=== PATIENT | female | born 1995 | race African-American/Black ===

== ENCOUNTER 2022-09-30 11:14 | Emergency (ER) | payer OTHER, SELFPAY ==
[2022-09-30 11:25] VITALS: BP 137/80; PULSE 88; RESP 16; TEMP 36.7; O2SAT 100
--- NOTE | 2022-09-30 11:27 | ED.BACK ---
HPI - Back Pain/Injury General Chief Complaint: Back Pain/Injury Stated Complaint: lower back pain Time Seen by Provider: 09/30/22 11:44 Source: patient and RN notes reviewed Mode of arrival: ambulatory Limitations: no limitations History of Present Illness HPI Narrative: 27-year-old female presents with concern for left low back pain that radiates occasionally towards her left hip and down her left thigh. She reports that symptoms started about a month ago, she does a job with heavy labor. She reports when symptoms 1st started she had pain on both sides low back and has been using an [id number] cream that has helped but she still continues to have left low back pain. She denies loss of bowel or bladder function, perianal anesthesia, weakness in any extremity. She denies dysuria, frequency, urgency. She denies fever, chills, sweats. MD elicited complaint: back pain Related Data Allergies Allergy/AdvReac Type Severity Reaction Status Date / Time No Known Allergies Allergy Unverified 09/30/22 11:23 Review of Systems Review of Systems: CONSTITUTIONAL: Denies malaise, chills, sweats, or fever. CARDIOVASCULAR: Denies chest pain, palpitations, or edema. RESPIRATORY: Denies cough or dyspnea. GASTROINTESTINAL: Denies abdominal pain, nausea, vomiting, diarrhea, loss of bowel function GENITOURINARY: Denies dysuria, hematuria, frequency, loss of bladder function. SKIN: Denies rash or itching. MUSCULOSKELETAL: Reports left low back pain NEUROLOGIC: Denies numbness, weakness, or headache. All systems reviewed & are unremarkable except as noted in HPI and below PMFSH Comments At time of signature, agree with nursing past medical, surgical, social and family history. There is no relevant family history pertinent to the presenting complaint Exam Narrative: GENERAL: Well-appearing, well-nourished, and in no acute distress. HEAD: Normocephalic, atraumatic. EYES: PERRLA and EOMI. NECK: Supple. No lymphadenopathy. CHEST: Clear to auscultation. No respiratory distress. HEART: Regular rate and rhythm. Distal pulses palpable and equal, cap refill <3 seconds ABDOMEN: Soft, nontender, nondistended, normal active bowel sounds, no palpable or pulsatile masses. No CVA tenderness MUSCULOSKELETAL: Normal range of motion and strength in all extremities; 5/5 strength with hip flexion and extension, dorsiflexion and extension, knee flexion and extension, plantar flexion and extension. Normal sensation in dermatomal distributions with sensitivity to light touch and pain. No midline back tenderness to palpation. No paraspinal tenderness. Transfers from sitting to standing. SKIN: Warm, dry, no rash. No ecchymosis, erythema, open wounds to back. NEURO: No focal deficits. Alert and oriented x3. Reflexes intact. Normal gait. PSYCH: Normal mood and affect Course Course Emergency Course: Patient is aware of diagnosis, understands and agrees to treatment plan. Anticipatory guidance given. Patient agrees to follow-up as directed and is aware of reasons to seek care at the emergency department. Portions of this record may have been created with voice recognition software Level of Care: Express Care Visit Vital Signs Vital signs: Vital Signs Temperature 98.1 F 09/30/22 11:25 Pulse Rate 88 09/30/22 11:25 Respiratory Rate 16 09/30/22 11:25 Blood Pressure 137/80 09/30/22 11:25 Pulse Oximetry 100 09/30/22 11:25 Oxygen Delivery Room Air 09/30/22 11:25 Temperature 98.1 F 09/30/22 11:25 Pulse Rate 88 09/30/22 11:25 Respiratory Rate 16 09/30/22 11:25 Blood Pressure 137/80 09/30/22 11:25 Pulse Oximetry 100 09/30/22 11:25 Oxygen Delivery Room Air 09/30/22 11:25 Reviewed. MDM - Back Pain/Injury MDM Narrative Medical decision making narrative: No risk factors or findings concerning for epidural abscess, diskitis, vertebral osteomyelitis, cord compression, cauda equina, vertebral fracture or bone malignancy, AAA,
== END 2022-09-30 11:57 | disposition home or self-care (01) ==
PROVIDERS: Emergency Provider Nurse Practitioner; PCP Family Medicine
DX: M54.50 Low back pain, unspecified (principal)
CPT/HCPCS: 81003; 99213; G0463